=== PATIENT | female | born 2000 | race Caucasian/White ===

== ENCOUNTER 2018-02-03 16:12 | Emergency (ER) | payer SELFPAY ==
[2018-02-03 16:16] VITALS: BP 125/66
--- NOTE | 2018-02-03 17:05 | RAD ---
Exam: Right foot three views History: 17-year-old female with right foot injury. Comparison: None Findings: A faint linear lucency extends transversely across the base of the right 5th metatarsal. It is possible this may represent a nondisplaced fracture site. Remainder the exam is unremarkable with no other findings to suggest acute bony abnormality. Impression: Possible nondisplaced fracture extending transversely across the base of the right 5th metatarsal Reported By:
--- NOTE | 2018-02-03 17:06 | DR.EXTPAIN ---
HPI - PCP Primary Care Physician: EARNESTINE - Complaint/Symptoms Chief Complaint:: PT. STATES SHE INJURED HER RIGHT FOOT OVER A WEEK AGO AND THE PAIN HAS NOT WENT AWAY. PT. STATES SHE TWISTED IT WHEN THE INJURY OCCURED. - Nurses notes reviewed Nurses Notes Review: Yes - Source History Provided: Patient - Mode of arrival Mode of Arrival: Ambulatory - Timing Onset of Chief Complaint: 01/25/18 - Context History of: Gout - Associated signs and symptoms Associated Signs and Symptoms: Pain PMH - PMH Past Medical History: Yes Past Medical History: Anxiety Past Surgical History: Yes Surgical History: Other - Family History History of Family Medical Conditions: No - Social History Does patient currently use any type of tobacco product: No Have you used tobacco products in the last 12 months: No Type of Tobacco Use: None Does any household member use tobacco: No Alcohol Use: None Do you use any recreational Drugs:: No Lives With: Mom Lives Where: Home - infectious screening In the last 2 months have you had wt loss of >10#?: NO Have you had fever, night sweats or hemotysis?: No Have you traveled outside the country in the last 6 months?: No Isolation: Standard ROS - Review of Systems Constitutional: No Symptoms Reported Eyes: No Symptoms Reported ENTM: No Symptoms Reported Respiratoy: No Symptoms Reported Cardiovascular: No Symptoms Reported Gastrointestinal/Abdominal: No Symptoms Reported Genitourinary: No Symptoms Reported Neurological: No Symptoms Reported Musculoskeletal: Right, Foot Integumentary: No Symptoms Reported Hematologic/Lymphatic: No Symptoms Reported Endocrine: No Symptoms Reported All Other Systems: Reviewed and Negative PE - Vital Signs Vitals: Temperature 98.0 F Pulse Rate 80 Respiratory Rate 17 Blood Pressure 125/66 O2 Sat by Pulse Oximetry 98 - General Limitations: No Limitations General Appearance: Alert - Head Head Exam: Normal Inspection - Eyes Eye exam: Normal Appearance - ENT ENT Exam: Normal External Ear Exam - Neck Neck Exam: Trachea Midline - Respiratory Respiratory Exam: Normal Lung Sounds Bilat Respiratory Exam: Bilateral Clear to Auscultation - Cardiovascular Cardiovascular Exam: Regular Rate, Normal Rhythm, Normal Heart Sounds - Extremities Extremities Exam: Tenderness (RT FOOT ) - Neurological Neurological Exam: Alert, Oriented X3 - Psychiatric Psychiatric Exam: Normal Affect, Normal Mood - Skin Skin Exam: Normal Color MDM - Differential Diagnosis Differential Diagnosis: Contusion, Fracture, Sprain (RIGHT FOOT) Course - Treatment Treatment: SEE ORDERS. - Education/Counseling Education/Counseling: Patient, Education Educated On: Diagnosis, Needs for Follow Up ROR - XRAY XRAY Interpreted by: Radiologist XRAY Findings: REPORT DISCUSS WITH PATIENT. - Diagnosis Discharge Problem: Fracture of right foot - Discharge Plan Condition: Stable Prescriptions: Ibuprofen [MOTRIN TAB 600 MG *] 600 mg PO TID PRN #20 tab PRN Reason: Pain/Inflammation - Follow ups/Referrals Follow ups/Referrals: STACEY COLBY [Primary Care Provider] - 2 days ABEL GARRETT [STAFF PHYSICIAN] - 1 day - Instructions Instructions: Foot Sprain, Metatarsal Fracture Rehab-SportsMed Additional Instructions: RETURN TO ED IF WORSE.
== END 2018-02-03 17:32 | disposition home or self-care (01) ==
LOC: ER 16:25
DX: S99.921A Unspecified injury of right foot, initial encounter (principal); Y33.XXXA Other specified events, undetermined intent, initial encounter; Y92.9 Unspecified place or not applicable
CPT/HCPCS: 73630; 99282